=== PATIENT | female | born 1965 | race African-American/Black ===

== ENCOUNTER 2019-01-27 16:40 | Emergency (ER) | payer OTHER ==
[~2019-01-27] VITALS: Ht 154.9 cm; Wt 59.0 kg
[2019-01-27 18:09] LABS: URINE BILIRUBIN NEGATIVE (Negative); URINE BLOOD NEGATIVE (Negative); URINE CLARITY CLEAR; URINE COLOR YELLOW; URINE GLUCOSE-RANDOM* NEGATIVE (Negative); URINE KETONES NEGATIVE (Negative); URINE LEUKOCYTES NEGATIVE (Negative); URINE NITRITE NEGATIVE (Negative); URINE PROTEIN (DIPSTICK) NEGATIVE (Negative); URINE UROBILINOGEN 0.2 E.U./dl (0.2-1.0)
[2019-01-27 18:46] LABS: ABSOLUTE NEUTROPHILS 6.2 thou/uL (1.4-8.2); BASOPHILS 0.5 % (0.0-2.0); EOSINOPHILS 0.9 % (0.0-3.0); HEMATOCRIT 36.7 % (37.0-47.0); HEMOGLOBIN 12.2 gm/dL (12.0-15.0); MCH 31.6 pg (26.0-34.0); MCHC 33.4 g/dL (28.0-37.0); MCV 94.6 fL (80.0-100.0); MONOCYTES 6.7 % (1.0-8.0); PLATELET COUNT 300 thou/uL (150-400); POLYS 65.9 % (36.0-66.0); RBC 3.87 mil/uL (4.20-5.00); RDW 12.7 % (10.5-14.5); WBC 9.4 thou/uL (4.0-11.0)
[2019-01-27 18:55] LABS: CALCIUM 8.4 mg/dL (8.5-10.1); CREATININE 0.6 mg/dL (0.6-1.0); POTASSIUM 4.2 mmol/L (3.5-5.1)
[2019-01-27 18:58] LABS: PROTIME 9.9 Seconds (9.3-11.4)
[2019-01-27 19:01] LABS: ALBUMIN 3.2 g/dL (3.4-5.0); TOTAL BILIRUBIN 0.2 mg/dL (<0.1-1.0); TOTAL PROTEIN 7.2 g/dL (6.4-8.2)
[2019-01-27 20:52] VITALS: BP 96/62
== END 2019-01-27 20:53 | disposition home or self-care (01) ==
LOC: ER 16:40
PROVIDERS: Physician Assistant
DX: N61.1 Abscess of the breast and nipple (principal); F41.9 Anxiety disorder, unspecified; F32.9 Major depressive disorder, single episode, unspecified; Z88.5 Allergy status to narcotic agent

== ENCOUNTER 2019-03-21 11:25 | Emergency (ER) | payer OTHER ==
[~2019-03-21] VITALS: Ht 154.9 cm; Wt 59.0 kg
[~2019-03-21 11:25] MED LIST: CLEOCIN HCL150 MG PO; NAPROSYN500 MG PO; NORCO 10-325 T1 EAC1 PO
[2019-03-21] MEDS ORDERED: NEURONTIN 300300 M1 PO (11:41)
[2019-03-21 12:53] LABS: ABSOLUTE NEUTROPHILS 7.8 thou/uL (1.4-8.2); BASOPHILS 0.5 % (0.0-2.0); EOSINOPHILS 1.8 % (0.0-3.0); HEMATOCRIT 37.3 % (37.0-47.0); HEMOGLOBIN 12.8 gm/dL (12.0-15.0); LYMPHOCYTES 16.2 % (24.0-44.0); MCH 32.7 pg (26.0-34.0); MCHC 34.4 g/dL (28.0-37.0); MONOCYTES 8.8 % (1.0-8.0); PLATELET COUNT 328 thou/uL (150-400); POLYS 72.7 % (36.0-66.0); RBC 3.92 mil/uL (4.20-5.00); RDW 13.6 % (10.5-14.5); WBC 10.8 thou/uL (4.0-11.0)
[2019-03-21 13:00] LABS: CALCIUM 9.4 mg/dL (8.5-10.1); CREATININE 0.5 mg/dL (0.6-1.0); POTASSIUM 4.3 mmol/L (3.5-5.1)
[2019-03-21 13:05] LABS: ALBUMIN 3.4 g/dL (3.4-5.0); TOTAL BILIRUBIN 0.3 mg/dL (<0.1-1.0); TOTAL PROTEIN 7.7 g/dL (6.4-8.2)
[2019-03-21 16:17] VITALS: BP 99/52
[2019-03-21] MEDS ORDERED: BACTRIM DS TAB1 EACH PO (16:19)
[2019-03-21] MEDS ORDERED: HIBICLENS118 ML TOP (16:19)
[2019-03-21] MEDS ORDERED: NORCO 5-325 TA1 EAC1 PO (16:19)
== END 2019-03-21 16:17 | disposition home or self-care (01) ==
LOC: ER 11:25
PROVIDERS: Physician Assistant
DX: N61.1 Abscess of the breast and nipple (principal); F41.9 Anxiety disorder, unspecified; F32.9 Major depressive disorder, single episode, unspecified; Z88.6 Allergy status to analgesic agent